=== PATIENT | male | born 1945 | race Caucasian/White ===

== ENCOUNTER 2020-05-06 14:33 | Inpatient (IN) | payer MEDICARE ==
[~2020-05-06] VITALS: Ht 170.2 cm; Wt 101.3 kg
[2020-05-06] MEDS ORDERED: LIPITOR10 MG PO (14:36)
[2020-05-06] MEDS ORDERED: CHILDREN'S ASPI81 M1 PO (14:36)
[2020-05-06] MEDS ORDERED: FUROSEMIDE 40 M40 MG PO (14:37)
[2020-05-06] MEDS ORDERED: K-DUR 20 MEQ T20 MEQ PO (14:37)
[2020-05-06] MEDS ORDERED: SERTRALINE HCL100 MG PO (14:37)
[2020-05-06] MEDS ORDERED: SEROQUEL 100 M100 M1 PO (14:37)
[2020-05-06 14:38] VITALS: BP 153/87
[2020-05-06] MEDS ORDERED: DEPAKOTE ER500 M1 PO (14:38)
[2020-05-06] MEDS ORDERED: FLOMAX0.4 MG PO (14:38)
[2020-05-06] MEDS ORDERED: NAMENDA 5 MG TAB5 M1 PO (14:39)
[2020-05-06] MEDS ORDERED: ARICEPT10 M1 PO (14:39)
[2020-05-06] MEDS ORDERED: SENNA PLUS TAB1 EACH PO (14:39)
[2020-05-06] MEDS ORDERED: XANAX 0.5 MG0.5 M1 PO (14:39)
[2020-05-06] MEDS ORDERED: QUETIAPINE FUMA50 M1 PO (14:40)
[2020-05-06] MEDS ORDERED: OYSTER SHELL C500 MG PO (14:40)
[2020-05-06] MEDS ORDERED: MILK OF MA400 MG/5 M PO (14:40)
[2020-05-06 15:39] LABS: HEMATOCRIT 42.7 % (42.0-52.0); HEMOGLOBIN 14.6 gm/dL (14.0-18.0); MCH 32.6 pg (26.0-34.0); MCHC 34.3 g/dL (28.0-37.0); MCV 95.1 fL (80.0-100.0); MPV 9.5 fl. (7.2-11.1); NUCLEATED RBCS 0 /100WBC; PLATELET COUNT* 134 thou/uL (150-400); RBC 4.49 mil/uL (4.50-6.00); RDW-CV 13.3 % (10.5-14.5); WBC 7.8 thou/uL (4.0-11.0)
[2020-05-06 15:44] LABS: CALCIUM 8.4 mg/dL (8.5-10.1); CREATININE 1.4 mg/dL (0.6-1.3); POTASSIUM 3.6 mmol/L (3.5-5.1)
--- NOTE | 2020-05-06 15:55 | EKG ---
[place] [address] ELECTROCARDIOGRAM REPORT Name: HARDIK LUAMIKeily Michaud Room: [facility]#: [id number] Admission: Attend Phys: Discharge: Date of : 45 Date of Service: 05/06/20 1444 Report #: [id number] THIS REPORT FOR: //name// [facility] ED Test Date: 2020-05-06 Test Time: 14:44:58 Pat Name: GAHZAL LUA Department: Room: Gender: [place]: [facility] : 1945 Requested By: Moises Mack Order Number: [id number] MD: Kishor Jones Measurements Intervals [place] Rate: 94 P: 24 [place]: 146 QRS: 68 QRSD: 96 T: 54 QT: 342 QTc: 428 Interpretive Statements Sinus rhythm low voltage nonspecific st segment changes Baseline wander in lead(s) I,III,aVL No previous ECG available for comparison Electronically Signed On 05-06-2020 15:54:48 CDT by Kishor Jones [email or web address] <ELECTRONICALLY SIGNED> By: Kishor Jones MD, LOCATED WITHIN [facility] 05/06/20 1554 1444 1444 Kishor Jones MD, [facility] /EPI
[2020-05-06 15:57] LABS: ALBUMIN 2.9 g/dL (3.4-5.0); CK-MB MASS 1.2 ng/mL (<0.5-3.6); TOTAL BILIRUBIN 0.4 mg/dL (<0.1-1.0)
[2020-05-06 16:01] LABS: ABSOLUTE LYMPHOCYTES 0.3 thou/uL (0.8-5.3); ABSOLUTE MONOCYTES 0.1 thou/uL (0.0-1.2); ABSOLUTE NEUTROPHILS 7.4 thou/uL (1.6-8.1)
[2020-05-06 16:02] LABS: PLATELET ESTIMATE ADEQUATE
[2020-05-06 16:25] LABS: URINE BILIRUBIN NEGATIVE (Negative); URINE BLOOD 3+ (Negative); URINE COLOR YELLOW; URINE GLUCOSE-RANDOM NEGATIVE (Negative); URINE KETONES NEGATIVE (Negative); URINE LEUKOCYTES-REFLEX NEGATIVE (Negative); URINE NITRITE-REFLEX NEGATIVE (Negative); URINE PROTEIN NEGATIVE (Negative); URINE SPECIFIC GRAVITY 1.025 (1.005-1.030); URINE UROBILINOGEN 0.2 E.U./dl (0.2-1.0)
[2020-05-06 16:26] LABS: URINE CLARITY HAZY
[2020-05-06 16:33] LABS: BACTERIA-REFLEX None Seen /HPF (None Seen); CASTS None Seen /LPF (None Seen); CRYSTALS None Seen /LPF (None Seen); SQUAMOUS 4-10 Moderate /LPF (0-3); URINE RBC >20 Many /HPF (0-2); URINE WBC-REFLEX None Seen /HPF (0-5)
[2020-05-06 16:43] LABS: APTT 23.7 Seconds (25.0-31.3); INR 1.2; PROTIME 11.9 Seconds (9.20-11.50)
[2020-05-06 17:20] VITALS: BP 134/56
[2020-05-06 17:50] VITALS: BP 120/70
[2020-05-06 20:00] VITALS: BP 103/49
[2020-05-06 21:37] LABS: BE 4.1 mmol/L (-2 to +3); PCO2 49.3 mmHg (35.0-45.0); PO2 91.4 mmHg (75.0-100.0); pH 7.401 (7.340-7.450)
[2020-05-06 23:59] VITALS: BP 93/46
[2020-05-07 04:19] LABS: HEMATOCRIT 35.6 % (42.0-52.0); MCH 31.9 pg (26.0-34.0); MCHC 33.9 g/dL (28.0-37.0); MCV 94.2 fL (80.0-100.0); MPV 9.9 fl. (7.2-11.1); RBC 3.77 mil/uL (4.50-6.00); RDW-CV 13.5 % (10.5-14.5); WBC 14.1 thou/uL (4.0-11.0)
[2020-05-07 04:32] LABS: HEMOGLOBIN 12.1 gm/dL (14.0-18.0)
[2020-05-07 04:37] LABS: CALCIUM 7.8 mg/dL (8.5-10.1); CREATININE 1.1 mg/dL (0.6-1.3); MAGNESIUM 2.1 mg/dL (1.8-2.4); POTASSIUM 3.5 mmol/L (3.5-5.1)
[2020-05-07 08:30] VITALS: BP 110/49
[2020-05-07 11:47] VITALS: BP 115/50
[2020-05-07 14:16] LABS: CALCIUM 7.7 mg/dL (8.5-10.1); POTASSIUM 3.3 mmol/L (3.5-5.1)
[2020-05-07 19:28] VITALS: BP 114/49
[2020-05-07 20:00] VITALS: BP 117/51
[2020-05-08] VITALS (7 sets, daily range): BP systolic 104–140; BP diastolic 49–70
[2020-05-08 12:06] LABS: CALCIUM 8.3 mg/dL (8.5-10.1); CREATININE 0.9 mg/dL (0.6-1.3); POTASSIUM 3.9 mmol/L (3.5-5.1)
[2020-05-09 04:00] VITALS: BP 132/70
[2020-05-09 07:56] LABS: HEMATOCRIT 37.9 % (42.0-52.0); HEMOGLOBIN 13.3 gm/dL (14.0-18.0); MCH 32.6 pg (26.0-34.0); MCHC 35.2 g/dL (28.0-37.0); MCV 92.6 fL (80.0-100.0); RBC 4.09 mil/uL (4.50-6.00); RDW-CV 13.2 % (10.5-14.5)
[2020-05-09 08:00] VITALS: BP 105/71
[2020-05-09 08:01] LABS: CALCIUM 7.9 mg/dL (8.5-10.1); POTASSIUM 3.5 mmol/L (3.5-5.1)
[2020-05-09 11:50] VITALS: BP 115/58
--- NOTE | 2020-05-09 15:39 | 2DMMODE ---
[place] [address] 2 D/M-MODE ECHOCARDIOGRAM Name: GHAZAL LUA Keily Room: [address] .R.#: [id number] Admission: 05/06/20 Attend Phys: Mariana Hackett, Discharge: Date of : 45 Date of Service: 05/09/20 1538 Report #: [id number] THIS REPORT FOR: cc: Prasanth Maria MD, Srinath MD Holkins,Benitez Delaney MD [facility] ~ APPROVED REPORT Study performed: 05/09/2020 14:32:23 EXAM: Limited 2D and color flow Echocardiogram BSA: 2.12 HR: 64 bpm BP: 105/71 mmHg Other Information Study Quality: Technically Difficult Technically limited study due to uncooperative patient. Indications Congestive Heart Failure 2D Dimensions IVSd: 13.60 (7-11mm) LVOT Diam: 22.98 (18-24mm) LVDd: 46.51 mm PWd: 11.69 (7-11mm) Ascending Ao: 32.68 (22-36mm) LVDs: 26.43 (25-40mm) Aortic Root: 30.46 mm Left Ventricle The left ventricle is normal size. There is normal LV segmental wall motion. There is normal left ventricular wall thickness. Left ventricular systolic function is normal. The left ventricular ejection fraction is within the normal range. LVEF is 60-65%. Aortic Valve The aortic valve is normal in structure. Mitral Valve The mitral valve is normal in structure. Great Vessels The aortic [place] [address] 2 D/M-MODE ECHOCARDIOGRAM Name: GHAZAL LUA Room: [address] IN [facility]#: [id number] Admission: 05/06/20 Attend Phys: Mariana Hackett, Discharge: Date of : 45 Date of Service: 05/09/20 1538 Report #: [id number] Pericardium There is no pericardial effusion. <Conclusion> The left ventricle is normal size. There is normal left ventricular wall thickness. Left ventricular systolic function is normal. The left ventricular ejection fraction is within the normal range. LVEF is 60-65%. There is no pericardial effusion. The aortic valve is normal in structure. The mitral valve is normal in structure. There is normal LV segmental wall motion. <ELECTRONICALLY SIGNED> By: Benitez Masterson MD, [facility] 05/09/20 1538 1538 1538 Benitez Masterson MD, FACC /INF
[2020-05-09 20:00] VITALS: BP 125/64
[2020-05-10] VITALS (7 sets, daily range): BP systolic 121–140; BP diastolic 61–76
[2020-05-10] MEDS ORDERED: AZITHROMYCIN500 MG PO (07:42)
== END 2020-05-10 14:00 | disposition home health service (06) | DRG 177 ==
LOC: M.ERS 14:33 → M.TBA-ER 16:16 → M.2W 16:16
PROVIDERS: Family Medicine; ADMIT Internal Medicine; ATTEND Internal Medicine
PROC: 02HV33Z Insertion of Infusion Device into Superior Vena Cava, Percutaneous Approach (ICD-10-PCS; principal; 2020-05-08)
PROC: B548ZZA Ultrasonography of Superior Vena Cava, Guidance (ICD-10-PCS; 2020-05-08)
DX: U07.1 COVID-19 (principal); J15.6 Pneumonia due to other Gram-negative bacteria; G93.41 Metabolic encephalopathy; E87.0 Hyperosmolality and hypernatremia; N17.9 Acute kidney failure, unspecified; F03.90 Unspecified dementia, unspecified severity, without behavioral disturbance, psychotic disturbance, mood disturbance, and anxiety; E78.5 Hyperlipidemia, unspecified; G47.00 Insomnia, unspecified; R31.9 Hematuria, unspecified; Z79.82 Long term (current) use of aspirin; Z79.899 Other long term (current) drug therapy; Z88.8 Allergy status to other drugs, medicaments and biological substances

== ENCOUNTER 2020-05-21 22:30 | Inpatient (IN) | payer MEDICARE ==
[~2020-05-21] VITALS: Ht 182.9 cm; Wt 97.5 kg
[~2020-05-21 22:30] MED LIST: ARICEPT10 M1 PO; AZITHROMYCIN500 MG PO; CHILDREN'S ASPI81 M1 PO; DEPAKOTE ER500 M1 PO; FLOMAX0.4 MG PO; FUROSEMIDE 40 M40 MG PO; K-DUR 20 MEQ T20 MEQ PO; LIPITOR10 MG PO; MILK OF MA400 MG/5 M PO; NAMENDA 5 MG TAB5 M1 PO; OYSTER SHELL C500 MG PO; QUETIAPINE FUMA50 M1 PO; SENNA PLUS TAB1 EACH PO; SEROQUEL 100 M100 M1 PO; SERTRALINE HCL100 MG PO; XANAX 0.5 MG0.5 M1 PO
[2020-05-21 23:02] VITALS: BP 127/97
[2020-05-22 00:13] LABS: CALCIUM 8.9 mg/dL (8.5-10.1); CREATININE 1.5 mg/dL (0.6-1.3); POTASSIUM 3.8 mmol/L (3.5-5.1)
[2020-05-22 00:23] LABS: ALBUMIN 2.8 g/dL (3.4-5.0); MAGNESIUM 2.6 mg/dL (1.8-2.4); TOTAL BILIRUBIN 0.5 mg/dL (<0.1-1.0); TOTAL PROTEIN 7.4 g/dL (6.4-8.2)
[2020-05-22 00:25] LABS: INR 1.2; PROTIME 12.8 Seconds (9.20-11.50)
[2020-05-22 01:21] LABS: ABSOLUTE BASOPHILS 0.1 thou/uL (0.0-0.2); ABSOLUTE EOSINOPHILS 0.1 thou/uL (0.0-0.7); ABSOLUTE LYMPHOCYTES 1.3 thou/uL (0.8-5.3); ABSOLUTE MONOCYTES 1.3 thou/uL (0.0-1.2); ABSOLUTE NEUTROPHILS 7.6 thou/uL (1.6-8.1); BASOPHILS 0.7 %; EOSINOPHILS 0.6 %; HEMATOCRIT 40.3 % (42.0-52.0); HEMOGLOBIN 13.5 gm/dL (14.0-18.0); LYMPHOCYTES 12.7 %; MCH 32.1 pg (26.0-34.0); MCHC 33.6 g/dL (28.0-37.0); MCV 95.5 fL (80.0-100.0); MONOCYTES 12.8 %; MPV 9.2 fl. (7.2-11.1); NUCLEATED RBCS 0 /100WBC; PLATELET COUNT* 115 thou/uL (150-400); POLYS 73.2 %; RBC 4.22 mil/uL (4.50-6.00); RDW-CV 13.5 % (10.5-14.5); WBC 10.4 thou/uL (4.0-11.0)
[2020-05-22 04:55] VITALS: BP 93/63
[2020-05-22 09:03] VITALS: BP 107/56
--- NOTE | 2020-05-22 10:36 | EKG ---
[place] [address] ELECTROCARDIOGRAM REPORT Name: GHAZAL LUA Room: [address]#: [id number] Admission: 05/22/20 Attend Phys: Mariana Hackett, Discharge: Date of : 45 Date of Service: 05/21/20 2241 Report #: [id number] THIS REPORT FOR: //name// [facility] ED Test Date: 2020-05-21 Test Time: 22:41:11 Pat Name: GHAZAL LUA Department: Room: [facility] Gender: M Otc Clerk: GLENN : 1945 Requested By: Ira Tatum Order Number: [id number] MD: Kishor Jones Measurements Intervals [place] Rate: 84 P: -3 [place]: 151 QRS: 46 QRSD: 99 T: 40 QT: 378 QTc: 447 Interpretive Statements Sinus rhythm nonspecific t wave changes Borderline low voltage, extremity leads Baseline wander in lead(s) V2 Compared to ECG 05/06/2020 14:44:58 No significant changes Electronically Signed On 05-22-2020 10:36:32 CDT by Kishor Jones [email or web address] <ELECTRONICALLY SIGNED> By: Kishor Jones MD, FACC 05/22/20 1036 40 40 Kishor Jones MD, FACC /EPI
[2020-05-22 12:40] VITALS: BP 125/68
[2020-05-22 12:41] VITALS: BP 124/70
[2020-05-22 16:30] VITALS: BP 102/71
[2020-05-22 20:00] VITALS: BP 109/63
[2020-05-23 00:43] VITALS: BP 102/57
[2020-05-23 04:18] VITALS: BP 108/66
[2020-05-23 05:30] LABS: HEMATOCRIT 38.8 % (42.0-52.0); HEMOGLOBIN 13.1 gm/dL (14.0-18.0); MCH 31.6 pg (26.0-34.0); MCHC 33.8 g/dL (28.0-37.0); MCV 93.7 fL (80.0-100.0); MPV 9.2 fl. (7.2-11.1); RBC 4.14 mil/uL (4.50-6.00); RDW-CV 13.5 % (10.5-14.5)
[2020-05-23 05:57] LABS: ALBUMIN 2.3 g/dL (3.4-5.0); CREATININE 0.9 mg/dL (0.6-1.3); MAGNESIUM 2.6 mg/dL (1.8-2.4); POTASSIUM 3.2 mmol/L (3.5-5.1); TOTAL BILIRUBIN 0.4 mg/dL (<0.1-1.0); TOTAL PROTEIN 6.2 g/dL (6.4-8.2)
[2020-05-23 08:10] VITALS: BP 114/55
[2020-05-23 12:00] VITALS: BP 123/58
[2020-05-23 16:00] VITALS: BP 135/71
[2020-05-23 20:00] VITALS: BP 120/68
[2020-05-24] VITALS: BP 114/63
[2020-05-24 07:20] VITALS: BP 104/61
[2020-05-24 10:12] LABS: CALCIUM 7.6 mg/dL (8.5-10.1); MAGNESIUM 2.4 mg/dL (1.8-2.4); POTASSIUM 3.5 mmol/L (3.5-5.1)
[2020-05-24 16:54] VITALS: BP 125/62
[2020-05-24 20:00] VITALS: BP 122/57
[2020-05-25 00:03] VITALS: BP 115/63
[2020-05-25 04:19] LABS: HEMATOCRIT 41.6 % (42.0-52.0); HEMOGLOBIN 14.2 gm/dL (14.0-18.0); MCH 31.9 pg (26.0-34.0); MCV 93.8 fL (80.0-100.0); RBC 4.44 mil/uL (4.50-6.00); RDW-CV 13.4 % (10.5-14.5); WBC 6.4 thou/uL (4.0-11.0)
[2020-05-25 05:11] LABS: ALBUMIN 2.4 g/dL (3.4-5.0); MAGNESIUM 2.5 mg/dL (1.8-2.4); POTASSIUM 3.2 mmol/L (3.5-5.1); TOTAL BILIRUBIN 0.5 mg/dL (<0.1-1.0)
[2020-05-25 07:50] VITALS: BP 107/62
[2020-05-25 12:00] VITALS: BP 118/63
[2020-05-25 16:22] VITALS: BP 98/59
[2020-05-25 20:00] VITALS: BP 103/68
[2020-05-26 07:58] VITALS: BP 144/67
[2020-05-26 09:17] LABS: CALCIUM 8.2 mg/dL (8.5-10.1); MAGNESIUM 2.6 mg/dL (1.8-2.4); POTASSIUM 4.3 mmol/L (3.5-5.1)
[2020-05-26] MEDS ORDERED: AZITHROMYCIN500 MG PO (09:53)
[2020-05-26] MEDS ORDERED: CEFDINIR300 MG PO (09:53)
[2020-05-26 10:32] LABS: URINE BILIRUBIN NEGATIVE (Negative); URINE BLOOD NEGATIVE (Negative); URINE CLARITY CLEAR; URINE COLOR YELLOW; URINE GLUCOSE-RANDOM NEGATIVE (Negative); URINE KETONES 1+ (Negative); URINE LEUKOCYTES-REFLEX NEGATIVE (Negative); URINE NITRITE-REFLEX NEGATIVE (Negative); URINE PROTEIN NEGATIVE (Negative); URINE SPECIFIC GRAVITY >= 1.030 (1.005-1.030); URINE UROBILINOGEN 0.2 E.U./dl (0.2-1.0)
== END 2020-05-26 17:42 | DRG 177 ==
LOC: M.ERS 22:30 → M.TBA-ER 05-22 01:09 → M.2W 05-22 12:34 → M.3W 05-25 13:39
PROVIDERS: Emergency Medicine; Internal Medicine; ADMIT Internal Medicine; ATTEND Internal Medicine
DX: J15.6 Pneumonia due to other Gram-negative bacteria (principal); G92 Toxic encephalopathy; E87.0 Hyperosmolality and hypernatremia; N17.9 Acute kidney failure, unspecified; E44.0 Moderate protein-calorie malnutrition; F03.90 Unspecified dementia, unspecified severity, without behavioral disturbance, psychotic disturbance, mood disturbance, and anxiety; R06.89 Other abnormalities of breathing; Z20.828 Contact with and (suspected) exposure to other viral communicable diseases; R79.89 Other specified abnormal findings of blood chemistry; E78.5 Hyperlipidemia, unspecified; Z79.82 Long term (current) use of aspirin; Z79.899 Other long term (current) drug therapy; Z88.8 Allergy status to other drugs, medicaments and biological substances; Z68.29 Body mass index [BMI] 29.0-29.9, adult

== ENCOUNTER 2020-07-26 19:10 | Emergency (ER) | payer MEDICARE ==
[~2020-07-26] VITALS: Ht 180.3 cm; Wt 86.2 kg
[~2020-07-26 19:10] MED LIST changes: +CEFDINIR300 MG PO
[2020-07-26] MEDS ORDERED: MELATONIN3 M1 PO (19:17)
[2020-07-26] MEDS ORDERED: SUPER THERAVIT1 EACH PO (19:18)
[2020-07-26] MEDS ORDERED: SERTRALINE HCL100 MG PO (19:19)
[2020-07-26] MEDS ORDERED: ACETAMINOPHEN500 M1 PO (19:21)
[2020-07-26] MEDS ORDERED: MILK OF MA400 MG/5 M PO (19:21)
[2020-07-26] MEDS ORDERED: NYSTATIN1 EA10 MISCELL (19:21)
[2020-07-26 19:36] LABS: URINE BLOOD 3+ (Negative); URINE CLARITY SL CLOUDY; URINE COLOR YELLOW; URINE GLUCOSE-RANDOM NEGATIVE (Negative); URINE KETONES 1+ (Negative); URINE LEUKOCYTES-REFLEX TRACE (Negative); URINE NITRITE-REFLEX NEGATIVE (Negative); URINE PROTEIN 2+ (Negative); URINE SPECIFIC GRAVITY >= 1.030 (1.005-1.030); URINE UROBILINOGEN 0.2 E.U./dl (0.2-1.0)
[2020-07-26 19:38] LABS: ICTOTEST (BILI CONFIRMATORY) Negative (Negative); URINE BILIRUBIN 1+ (Negative)
[2020-07-26 19:41] LABS: HEMATOCRIT 28.2 % (42.0-52.0); HEMOGLOBIN 9.5 gm/dL (14.0-18.0); MCH 32.5 pg (26.0-34.0); MCHC 33.7 g/dL (28.0-37.0); MCV 96.4 fL (80.0-100.0); MPV 7.6 fl. (7.2-11.1); NUCLEATED RBCS 0 /100WBC; PLATELET COUNT* 184 thou/uL (150-400); RBC 2.93 mil/uL (4.50-6.00); RDW-CV 15.9 % (10.5-14.5); WBC 5.1 thou/uL (4.0-11.0)
[2020-07-26 19:49] LABS: MUCUS 4-6 Moderate strn/LPF (None Seen)
[2020-07-26 19:50] LABS: SQUAMOUS 0-3 Few /LPF (0-3); URINE RBC >20 Many /HPF (0-2)
[2020-07-26 19:50] LABS: CALCIUM 7.7 mg/dL (8.5-10.1); CREATININE 0.9 mg/dL (0.6-1.3); POTASSIUM 3.1 mmol/L (3.5-5.1)
[2020-07-26 19:52] LABS: URINE WBC-REFLEX >25 Many /HPF (0-5)
[2020-07-26 19:53] LABS: BACTERIA-REFLEX None Seen /HPF (None Seen); CASTS None Seen /LPF (None Seen); CRYSTALS None Seen /LPF (None Seen)
[2020-07-26 19:54] LABS: TOTAL BILIRUBIN 0.2 mg/dL (<0.1-1.0); TOTAL PROTEIN 5.5 g/dL (6.4-8.2)
[2020-07-26 20:00] LABS: ABSOLUTE BASOPHILS 0.1 thou/uL (0.0-0.2); ABSOLUTE EOSINOPHILS 0.2 thou/uL (0.0-0.7); ABSOLUTE LYMPHOCYTES 0.9 thou/uL (0.8-5.3); ABSOLUTE MONOCYTES 0.7 thou/uL (0.0-1.2); ABSOLUTE NEUTROPHILS 3.3 thou/uL (1.6-8.1); METAMYELOCYTES 1 %; PLATELET ESTIMATE ADEQUATE
[2020-07-26 20:01] LABS: ANISOCYTOSIS Occasional; BURR CELLS Occasional; POIKILOCYTOSIS Occasional
[2020-07-26] MEDS ORDERED: KEFLEX500 M1 PO (22:54)
[2020-07-27 04:07] VITALS: BP 112/75
== END 2020-07-27 04:10 | disposition home or self-care (01) ==
LOC: M.ERS 19:10
PROVIDERS: Emergency Medicine
DX: N39.0 Urinary tract infection, site not specified (principal); R33.9 Retention of urine, unspecified; E78.5 Hyperlipidemia, unspecified; Z79.899 Other long term (current) drug therapy; Z88.8 Allergy status to other drugs, medicaments and biological substances

== ENCOUNTER 2020-08-01 12:46 | Emergency (ER) | payer MEDICARE ==
[~2020-08-01] VITALS: Ht 170.2 cm; Wt 87.5 kg
[~2020-08-01 12:46] MED LIST changes: +ACETAMINOPHEN500 M1 PO; +KEFLEX500 M1 PO; +MELATONIN3 M1 PO; +NYSTATIN1 EA10 MISCELL; +SUPER THERAVIT1 EACH PO
[2020-08-01] MEDS ORDERED: RISPERIDONE0.5 M1 PO (13:12)
[2020-08-01] MEDS ORDERED: AMPICILLIN SOD500 MG PO (13:13)
[2020-08-01] MEDS ORDERED: ATIVAN2 MG PO (13:15)
[2020-08-01] MEDS ORDERED: LEVSIN0.125 MG PO (13:16)
[2020-08-01 13:38] LABS: CALCIUM 7.8 mg/dL (8.5-10.1); CREATININE 0.7 mg/dL (0.6-1.3); POTASSIUM 3.2 mmol/L (3.5-5.1)
[2020-08-01 14:01] LABS: URINE BILIRUBIN NEGATIVE (Negative); URINE BLOOD 3+ (Negative); URINE CLARITY CLEAR; URINE COLOR YELLOW; URINE GLUCOSE-RANDOM NEGATIVE (Negative); URINE KETONES NEGATIVE (Negative); URINE LEUKOCYTES-REFLEX TRACE (Negative); URINE NITRITE-REFLEX NEGATIVE (Negative); URINE PROTEIN TRACE (Negative); URINE UROBILINOGEN 0.2 E.U./dl (0.2-1.0)
[2020-08-01 14:08] LABS: SQUAMOUS NONE SEEN /LPF (0-3); URINE RBC >20 Many /HPF (0-2); URINE WBC-REFLEX 0-5 Rare /HPF (0-5)
[2020-08-01 14:09] LABS: BACTERIA-REFLEX >30 Many /HPF (None Seen); CASTS None Seen /LPF (None Seen); CRYSTALS None Seen /LPF (None Seen); MUCUS None Seen strn/LPF (None Seen)
[2020-08-01] MEDS ORDERED: KEFLEX500 M1 PO (14:21)
[2020-08-01 15:28] VITALS: BP 120/70
== END 2020-08-01 15:29 | disposition home or self-care (01) ==
LOC: M.ERS 12:46
PROVIDERS: Emergency Medicine Emergency Medical Services
DX: N39.0 Urinary tract infection, site not specified (principal); R33.9 Retention of urine, unspecified; E78.5 Hyperlipidemia, unspecified; Z88.8 Allergy status to other drugs, medicaments and biological substances